=== PATIENT | female | born 1975 | race Caucasian/White ===

== ENCOUNTER 2024-10-23 22:50 | Emergency (ER) | payer OTHER ==
[~2024-10-23] VITALS: Ht 172.7 cm; Wt 58.1 kg
[2024-10-23] MEDS ORDERED: VALA500T34 PO (23:29)
[2024-10-23 23:58] VITALS: BP 126/67; O2SAT 99
== END 2024-10-23 23:59 | disposition home or self-care (01) ==
LOC: ER 22:50
DX: R21 Rash and other nonspecific skin eruption (principal); B02.9 Zoster without complications; Z88.0 Allergy status to penicillin; Z88.1 Allergy status to other antibiotic agents; Z88.8 Allergy status to other drugs, medicaments and biological substances; Z91.013 Allergy to seafood
CPT/HCPCS: A4606; A4663